=== PATIENT | male | born 1950 | race African-American/Black ===

== ENCOUNTER 2018-12-08 01:33 | Emergency (ER) | payer MEDICARE, MEDICAID ==
[~2018-12-08] VITALS: Ht 172.7 cm; Wt 80.0 kg
[2018-12-08] MEDS ORDERED: KETOROLAC 60MG/2ML VIAL IM ONE (02:30)
[2018-12-08 04:47] VITALS: BP 125/73
== END 2018-12-08 04:48 | disposition home or self-care (01) ==
LOC: ER 01:33
DX: M79.662 Pain in left lower leg (principal); M79.661 Pain in right lower leg
CPT/HCPCS: 72170; 96372; 99283; J1885

== ENCOUNTER 2021-04-20 22:00 | Emergency (ER) | payer MEDICARE, MEDICAID ==
[~2021-04-20] VITALS: Ht 172.7 cm; Wt 82.0 kg
[2021-04-20 23:39] LABS: CLARITY URINE CLEAR (CLEAR); COLOR URINE YELLOW (YELLOW); KETONES URINE NEGATIVE (NEGATIVE); LEUKOCYTE ESTERASE URINE NEGATIVE (NEGATIVE); NITRITE URINE NEGATIVE (NEGATIVE); OCCULT BLOOD URINE NEGATIVE (NEGATIVE); PROTEIN URINE NEGATIVE (NEGATIVE); SPECIFIC GRAVITY URINE 1.021 (1.005-1.030)
[2021-04-20 23:40] LABS: BASOPHILS % 0.8 % (0.0-2.0); EOSINOPHILS % 3.7 % (0.0-5.0); HEMATOCRIT. 40.7 % (42.0-52.0); HEMOGLOBIN. 14.1 g/dL (14.0-18.0); MEAN CORPUSCULAR HEMOGLOBIN 31.4 pg (28.0-32.0); MEAN CORPUSCULAR VOLUME 90.4 fL (80.0-94.0); MEAN PLATELET VOLUME 7.5 fl (7.4-10.4); MONOCYTES % 11.8 % (2.0-8.0); NEUTROPHILS % 41.7 % (40.0-76.0); PLATELET 264 x1000/uL (130-400); RED CELL DISTRIBUTION WIDTH 13.6 % (11.6-14.6)
[2021-04-20 23:46] LABS: CHLORIDE 110 mEq/L (98-107)
[2021-04-21] MEDS ORDERED: IOHEXOL-350 100 ML BOTTLE ONE (01:35)
[2021-04-21] MEDS ORDERED: ACETAMINOPHEN 325MG TABLET PO NR (02:30)
[2021-04-21 03:35] VITALS: BP 126/77
== END 2021-04-21 03:46 | disposition home or self-care (01) ==
LOC: ER 22:00
DX: R07.89 Other chest pain (principal)
CPT/HCPCS: 36415; 71045; 71275; 74174; 80053; 81003; 83880; 84484; 85025; 93005; 99285; Q9967

== ENCOUNTER 2023-06-03 02:47 | Emergency (ER) | payer MEDICARE, MEDICAID ==
[~2023-06-03] VITALS: Ht 172.7 cm; Wt 82.0 kg
[2023-06-03 03:04] VITALS: BP 130/77; PULSE 85; RESP 14; TEMP 97.7; O2SAT 97
[2023-06-03 07:11] LABS: BASOPHILS % 0.7 % (0.0-2.0); EOSINOPHILS % 3.9 % (0.0-5.0); HEMATOCRIT. 45.5 % (42.0-52.0); HEMOGLOBIN. 15.7 g/dL (14.0-18.0); LYMPHOCYTES % 27.3 % (20.0-50.0); MEAN CORPUSCULAR HGB CONC 34.4 g/dL (31.0-37.0); MEAN CORPUSCULAR VOLUME 93.1 fL (80.0-94.0); MEAN PLATELET VOLUME 7.4 fl (7.4-10.4); MONOCYTES % 10.6 % (2.0-8.0); NEUTROPHILS % 57.5 % (40.0-76.0); PLATELET 236 x1000/uL (130-400); RED BLOOD CELL COUNT 4.88 mill/uL (4.7-6.1); RED CELL DISTRIBUTION WIDTH 14.7 % (11.6-14.6); WHITE BLOOD COUNT 3.2 x1000/uL (4.5-11.0)
[2023-06-03 07:50] LABS: ALANINE AMINOTRANSFERASE 17 IU/L (10-49); ALBUMIN 4.7 g/dL (3.2-4.8); ASPARTATE AMINOTRANSFERASE 22 IU/L (<34); BILIRUBIN TOTAL 0.7 mg/dL (0.1-1.0); CALCIUM 10.1 mg/dL (8.7-10.4); CARBON DIOXIDE 27 mEq/L (21-32); CHLORIDE 106 mEq/L (98-107); CREATININE 0.9 mg/dL (0.6-1.3); GLUCOSE 98 mg/dL (70-105); POTASSIUM 4.5 mEq/L (3.5-5.1); PROTEIN TOTAL 8.2 g/dL (6.0-8.3); SODIUM 136 mEq/L (136-145); UREA NITROGEN BLOOD 12 mg/dL (9-23)
== END 2023-06-03 10:23 | disposition home or self-care (01) ==
LOC: ER 05:18
DX: M50.30 Other cervical disc degeneration, unspecified cervical region (principal); M48.02 Spinal stenosis, cervical region
CPT/HCPCS: 36415; 80053; 85025; 99284